=== PATIENT | male | born 1985 | race Caucasian/White ===

== ENCOUNTER 2017-08-24 19:12 | Emergency (ER) | payer BC ==
[~2017-08-24] VITALS: Ht 177.8 cm; Wt 79.0 kg
[2017-08-24 19:34] LABS: HEMATOCRIT 40.4 % (38.0-50.0); HEMOGLOBIN 14.2 G/DL (12.5-16.6); MCH 32.1 PG (29.0-34.0); MCHC 35.1 G/DL (30.0-36.0); MCV 91.2 FL (86-99); PLATELET COUNT 158 K/uL (156-360); RBC DIS.WIDTH-SD 40.4 % (39-53); RED BLOOD COUNT 4.43 M/uL (4.00-5.50); WHITE BLOOD COUNT 3.8 K/uL (4.1-10.2)
[2017-08-24 20:03] LABS: CHLORIDE 101 MEQ/L (99-109); CREATININE 1.1 MG/DL (0.6-1.3); GFR ESTIMATE (CALCULATED) > 59 mL/min/ (58.99-99999); GLUCOSE 139 mg/dL (70-99); POTASSIUM 3.3 MEQ/L (3.7-5.4); SODIUM 136 MEQ/L (136-147); UREA NITROGEN (BUN) 16 mg/dL (9-23)
[2017-08-24 21:56] LABS: D-DIMER ELISA < 150.00 ng/mLDDU (<230)
[2017-08-24 22:36] VITALS: BP 108/67
== END 2017-08-24 22:36 | disposition home or self-care (01) ==
LOC: EME 19:12
DX: J06.9 Acute upper respiratory infection, unspecified (principal); E87.6 Hypokalemia
CPT/HCPCS: 71046; 80048; 85027; 85379; 93005; 99281; 99284